=== PATIENT | male | born 1950 | race Caucasian/White ===

== ENCOUNTER 2016-06-14 15:28 | Inpatient (IN) | payer OTHER ==
--- NOTE | 2016-06-14 16:18 | CT ---
EXAM: CT abdomen pelvis without contra HISTORY: Pain, constipation COMPARISON: None TECHNIQUE: CT abdomen pelvis performed without intravenous contrast. Coronal and sagittal reformat donte images obtained FINDINGS: There is a 3 mm pulmonary nodule left lower lobe image 70. Mild subsegmental atelectasis in the lung bases. Mild emphysematous change at the lung bases. Granulomatous calcification right lung. No free air. No acute abnormalities of the bones. Degenerative change in the spine. Heart normal in size Evaluation organ parenchyma limited without contrast. Liver appears normal. Gallb ladder is moderately distended. No visible gallstones. Pancreas appears normal. Granulomas calcif ication in the spleen. Spleen otherwise appears normal. Adrenals appear normal. Granulomatous c alcification in the spleen. Spleen otherwise appears normal. Mild left pelviectasis without obstru cting etiology identified. No nephrolithiasis. Sub centimeter hypodensity right kidney, too small t o characterize. No calculi visualized in normal course of the ureters. Bladder unremarkable. Pros dang normal in size. Aorta normal in caliber with atherosclerosis of the aorta and branches. No ly mphadenopathy or ascites. Stomach appears normal. No dilated loops small bowel. Appendix not visu alized. Thereis marked fecal retention in the rectosigmoid with rectum, measuring up to 8.5 cm. IMPRESSION: 1. Marked fecal retention rectosigmoid. Correlate for fecal impaction. 2. Moderately distended gallbladder. No visible gallstones. Recommend correlation with right upper quadrant ultrasound as clinically indicated. 3. Mild left pelviectasis without obstructing etiology identified. 4. Atherosclerosis. 5. Mild emphysema. 6. 3 mm pulmonary nodule left lower lobe. CT chest follow-up recommended 12 months for reevaluatio n. Report faxed at time of dictation.
--- NOTE | 2016-06-14 17:08 | ED.PDOC ---
General ED Provider: Dr. JAY ISRAEL Chief Complaint: Constipation Stated Complaint: constipation Time Seen by Physician: 15:20 (no BM x 7 days ) Mode of Arrival: Stretcher Information Source: Patient Exam Limitations: No limitations Nursing and Triage Documentation Reviewed and Agree: Yes (on pain meds for skin graft) GI Complaint Exam - Abdominal Pain Complaint/Exam Onset: Gradual Duration: 7 days Symptoms Are: Still present Timing: Constant Initial Severity: Moderate Current Severity: Moderate Location of Pain: Diffuse Character: Reports: Aching Aggravating: Reports: None Alleviating: Reports: None Associated Signs and Symptoms: Reports: Constipation. Denies: Diaphoresis, Fever, Cough, Chest pain, Dizziness, Back pain, Blood in stool, Dysuria, Urinary frequency, Decreased urine output, Decreased appetite, Discharge, Nausea , Vomiting, Diarrhea, Decreased activity Cardiac Risk Factors: Reports: DM Testicular Torsion Risk Factors: Reports: None Surgical Obstruction Risk Factors: Reports: None Abdominal Findings: Present: None Differential Diagnoses: Other (fecal impaction) Review of Systems - Review Of Systems Constitutional: Reports: No symptoms Eyes: Reports: No symptoms Ears, Nose, Mouth, Throat: Reports: No symptoms Respiratory: Reports: No symptoms Cardiac: Reports: No symptoms GI: Reports: Abdominal pain, Constipated : Reports: No symptoms Musculoskeletal: Reports: No symptoms Skin: Reports: No symptoms Neurological: Reports: No symptoms Endocrine: Reports: No symptoms Hematologic/Lymphatic: Reports: No symptoms All Other Systems: Reviewed and Negative Past Medical History - Past Medical History Previously Healthy: No Endocrine: Reports: DM 2 Cardiovascular: Reports: None Respiratory: Reports: None Hematological: Reports: None Gastrointestinal: Reports: None Genitourinary: Reports: None Neuro/Psych: Reports: None Musculoskeletal: Reports: None Cancer: Reports: None - Surgical History General Surgical History: Reports: None - Family History Family History: Reports: None - Social History Smoking Status: Current every day smoker, Heavy tobacco smoker Hx Substance Use: No Alcohol Screening: None Physical Exam - Physical Exam Appearance: Well-appearing, No pain distress, Well-nourished Eyes: LUPE, EOMI, Conjunctiva clear ENT: Ears normal, Nose normal, Oropharynx normal Respiratory: Airway patent, Breath sounds clear, Breath sounds equal, Respirations nonlabored Cardiovascular: RRR, Pulses normal, No rub, No murmur GI/: Soft, Nontender, No masses, Bowel sounds normal, No Organomegaly Musculoskeletal: Normal strength, ROM intact, No edema, No calf tenderness Skin: Warm, Dry, Normal color Neurological: Sensation intact, Motor intact, Reflexes intact, Cranial nerves intact, Alert, Oriented Psychiatric: Affect appropriate, Mood appropriate Interpretation - Radiology Interpretation Radiology Interpretation By: Radiologist Critical Care Note - Critical Care Note Total Time (mins): 0 Course - Course Orders, Labs, Meds: Orders Category Date Time Status CT ABDOMEN/PELVIS WO CONTRAST Stat RADS 06/14/16 15:30 Completed Vital Signs: Temp Pulse Resp BP Pulse Ox 06/14/16 15:18 99.1 F 91 H 20 161/93 H 96 Departure - Departure Time of Disposition: 17:08 Disposition: ADMITTED INPATIENT Discharge Problem: Constipation Instructions: Constipation (ED), High Fiber Diet (ED) Condition: Good Pt referred to PMD for follow-up: No Additional Instructions: Please call your Family Physician as soon as possible to schedule a follow-up appointment. Allergies/Adverse Reactions: Allergies No Known Allergies Allergy (Verified 03/24/15 15:56) Home Medications: Ambulatory Orders Metformin HCl [Fortamet] 500 mg PO PRN PRN 03/24/15 Aspirin/Calcium Carbonate/Mag [Aspirin Buffered 325 mg Tab] 325 mg PO DAILY 02/18 Lisinopril [Zestril] 20 mg PO DAILY 06/14/16 Oxycodone-Acetaminophen 5-325 [Percocet 5-325] 1 - 2 tab PO Q6HR PRN 06/14/16 Pregabalin [Lyrica] 100 mg PO TID 06/14/16
[2016-06-14] MEDS ORDERED: NON-FORMULARY MEDICATION (Metformin Hcl [Fortamet] 500 MG) PO PRN (17:12)
[2016-06-14 17:29] LABS: BASOPHILS % (AUTO) 0.1 % (0.0-3.0); EOSINOPHILS % (AUTO) 0.1 % (0.0-7.0); HEMATOCRIT 34.3 % (42.0-52.0); HEMOGLOBIN 11.7 g/dl (14.0-18.0); IMMATURE GRANULOCYTE % (AUTO) 0.3 % (0.0-5.0); LYMPHOCYTES # (AUTO) 1.8 K/uL (0.60-3.4); LYMPHOCYTES % (AUTO) 12.5 (10.0-50.0); MEAN CORPUSCULAR HEMOGLOBIN 29.6 pg (27.0-31.0); MEAN CORPUSCULAR HGB CONC 34.1 (31.8-35.4); MEAN CORPUSCULAR VOLUME 86.8 fl (80.0-94.0); MONOCYTES # (AUTO) 0.9 K/uL (0.4-2.0); MONOCYTES % (AUTO) 6.1 (0-10); NEUTROPHILS # (AUTO) 11.7 K/ul (2.0-6.9); NEUTROPHILS % (AUTO) 80.9; PLATELET COUNT 423 10^3/uL (140-440); RED BLOOD COUNT 3.95 10^6/ul (4.70-6.10); WHITE BLOOD COUNT 14.53 K/ul (4.2-10.2)
[2016-06-14 17:53] LABS: ALBUMIN/GLOBULIN RATIO 0.95; ANION GAP 17.1; BILIRUBIN,TOTAL 0.46 mg/dL (0.00-1.20); BUN/CREATININE RATIO 10.44; CALCIUM 9.8 mg/dL (8.2-10.2); CREATININE 0.67 mg/dL (0.60-1.10); POTASSIUM 4.1 mmol/L (3.5-5.1); TOTAL PROTEIN 8.2 g/dL (5.8-8.1)
[2016-06-14 18:34] VITALS: BMI 15.9
[2016-06-14] MEDS: LYRICA PO SCH (20:47)
[2016-06-14] MEDS: PERCOCET 5-325 PO PRN (20:47)
[2016-06-15] MEDS: SODIUM CHLORIDE 1,000 ML IV SCH ×2 (03:07→20:45)
[2016-06-15] MEDS ORDERED: PERCOCET 10-325 ONE (03:26)
[2016-06-15] MEDS: PERCOCET 5-325 PO PRN ×5 (03:34→20:43)
[2016-06-15 08:23] LABS: BASOPHILS % (AUTO) 0.4 % (0.0-3.0); EOSINOPHILS # (AUTO) 0.1 K/ul (0.0-0.7); EOSINOPHILS % (AUTO) 0.7 % (0.0-7.0); HEMATOCRIT 30.9 % (42.0-52.0); HEMOGLOBIN 10.5 g/dl (14.0-18.0); IMMATURE GRANULOCYTE % (AUTO) 0.4 % (0.0-5.0); LYMPHOCYTES # (AUTO) 2.5 K/uL (0.60-3.4); LYMPHOCYTES % (AUTO) 30.2 (10.0-50.0); MEAN CORPUSCULAR HEMOGLOBIN 30.2 pg (27.0-31.0); MEAN CORPUSCULAR VOLUME 88.8 fl (80.0-94.0); MONOCYTES # (AUTO) 0.9 K/uL (0.4-2.0); MONOCYTES % (AUTO) 10.1 (0-10); NEUTROPHILS # (AUTO) 4.9 K/ul (2.0-6.9); NEUTROPHILS % (AUTO) 58.2; PLATELET COUNT 338 10^3/uL (140-440); RED BLOOD COUNT 3.48 10^6/ul (4.70-6.10); WHITE BLOOD COUNT 8.39 K/ul (4.2-10.2)
[2016-06-15] MEDS ORDERED: GLUCOPHAGE PO PRN (08:37)
[2016-06-15 08:47] LABS: BUN/CREATININE RATIO 14.7; CALCIUM 9.2 mg/dL (8.2-10.2); CREATININE 0.68 mg/dL (0.60-1.10)
[2016-06-15] MEDS: LYRICA PO SCH ×3 (08:48→20:43)
[2016-06-15] MEDS: ZESTRIL PO SCH (08:48)
[2016-06-15] MEDS ORDERED: NON-FORMULARY MEDICATION (Lisinopril [Zestril] 20 MG) PO SCH ×22 (09:00)
[2016-06-15] MEDS ORDERED: ARTIFICIAL TEARS OPTH SOL OP PRN (10:36)
[2016-06-15] MEDS ORDERED: TORADOL IVP STA (17:11)
[2016-06-16] MEDS: PERCOCET 5-325 PO PRN ×2 (06:45→14:55)
[2016-06-16 07:50] LABS: BASOPHILS # (AUTO) 0.1 K/uL (0-0.2); BASOPHILS % (AUTO) 0.5 % (0.0-3.0); EOSINOPHILS # (AUTO) 0.3 K/ul (0.0-0.7); EOSINOPHILS % (AUTO) 2.5 % (0.0-7.0); HEMATOCRIT 28.3 % (42.0-52.0); HEMOGLOBIN 9.6 g/dl (14.0-18.0); IMMATURE GRANULOCYTE % (AUTO) 0.4 % (0.0-5.0); LYMPHOCYTES # (AUTO) 2.3 K/uL (0.60-3.4); MEAN CORPUSCULAR HEMOGLOBIN 29.8 pg (27.0-31.0); MEAN CORPUSCULAR HGB CONC 33.9 (31.8-35.4); MEAN CORPUSCULAR VOLUME 87.9 fl (80.0-94.0); MONOCYTES # (AUTO) 0.9 K/uL (0.4-2.0); MONOCYTES % (AUTO) 8.2 (0-10); NEUTROPHILS # (AUTO) 7.1 K/ul (2.0-6.9); NEUTROPHILS % (AUTO) 66.4; PLATELET COUNT 339 10^3/uL (140-440); RED BLOOD COUNT 3.22 10^6/ul (4.70-6.10); WHITE BLOOD COUNT 10.63 K/ul (4.2-10.2)
[2016-06-16 08:26] LABS: ANION GAP 10.3; BUN/CREATININE RATIO 16.92; CALCIUM 8.8 mg/dL (8.2-10.2); CREATININE 0.65 mg/dL (0.60-1.10); POTASSIUM 4.3 mmol/L (3.5-5.1)
[2016-06-16] MEDS: ZESTRIL PO SCH (09:09)
[2016-06-16] MEDS: LYRICA PO SCH ×2 (09:09→15:58)
--- NOTE | 2016-06-16 13:14 | DI ---
Examination: Single radiographic image of the abdomen. Comparison: CT scan performed 06/14/2016. Reason for study: Constipation. FINDINGS: There is a juzjlozy-bo-hmqes amount of stool seen throughout the abdomen. Air is seen to the level of the rectosigmoid with stool within the rectum. Bowel gas pattern is nonobstructive an d nonspecific. Impression: A nonobstructive, nonspecific bowel gas pattern with a moderate to large stool burden.
[2016-06-16] MEDS ORDERED: CITRATE OF MAGNESIA PO STA (13:24)
[2016-06-16] MEDS ORDERED: CITRATE OF MAGNESIA ONE (13:46)
[2016-06-16 15:15] VITALS: BP 150/81; TEMP 97.2
--- NOTE | 2016-06-17 15:19 | PN ---
DATE OF SERVICE: 06/15/16 SUBJECTIVE: The patient had almost 6-7 very large bowel movements. REVIEW OF SYSTEMS: CONSTITUTIONAL: No fever, no chills. Feeling weak and tired. HEENT: Normal. ENDOCRINE: No weight gain, no weight loss. CVS: No angina symptoms. No CHF symptoms. No palpitations. No atypical chest pain for CAD. No shortness of breath. No PND, no orthopnea. RESPIRATORY: No cough, no hemoptysis. GI: No nausea, no vomiting. Abdominal pain. : No hematuria. No polyuria. MUSCULOSKELETAL:. No joint swelling. PSYCHIATRIC: Not anxious. No depression. No suicidal thoughts. No homicidal thoughts. SKIN: Intact. No rash. PHYSICAL EXAMINATION: V/S: Blood pressure 104/67, respiratory 16, heart rate 68 and temperature 98.5. HEENT: Normocephalic, atraumatic. Ears, eyes, nose and throat normal. Mucosa dry. Pallor positive. No icterus. NECK: Supple. No JVD, no carotid bruit. No lymphadenopathy. LUNGS: Decreased and clear to auscultation. No rales or rhonchi. HEART: S1, S2 normal. No S3. No murmur, gallop or regurgitation. ABDOMEN: Soft, nontender. Bowel sounds active. No rigidity. No rebound or guarding. No CVA tenderness. EXTREMITIES: No clubbing, cyanosis or pedal edema. Right elbow amputation. MUSCULOSKELETAL: No joint swelling. NEUROLOGIC: Awake, alert, oriented times three. No focal deficit. LYMPHATIC: No lymph nodes palpable. SKIN: Intact. LABS: WBC 8.39, hgb 10.5, hct 30.9, plt count 338, sodium 133, potassium 4.0, chloride 99, bicarb 25, BUN 10 and creatinine 0.68. ASSESSMENT: 1. Fecal impaction with severe constipation which is resolved 2. Dehydration 3. Diabetes 4. Hypertension 5. Dyslipidemia 6. Left facial melanoma, status post radiation and graft surgery PLAN: 1. Continue the medication Metformin 2. Oxycodone 3. Pregabalin 4. Out of bed to chair 5. Continue IV fluids Will follow the patient in daily rounds. TIME SPENT: More than 30 minutes MTDD
--- NOTE | 2016-06-20 09:58 | HP ---
DATE OF SERVICE: 06/14/16 CHIEF COMPLAINT: Constipation. HISTORY OF PRESENT ILLNESS: This is a 65-year-old male with recent history of melanoma diagnosed on the left side of face for which the patient had radiation and status post transplant surgery of the skin from forearm, which was patched to the left side of the face. After the surgery, the patient was given Hydrocodone and has been taking that. The patient has not had any bowel movement for almost one week. He started having abdominal discomfort and tightness. He did take Miralax, took a bottle of Magnesium Citrate, which did not help him. The patient had a left leg amputation due to the melanoma in the past; surgery done at [facility] in [place]. The patient was seen by Dr. Palacios. CT of the abdomen showed constipation, marked fecal retention, rectosigmoid, moderately distended gallbladder, no gallstones. At that time, the patient is admitted to the hospital for disimpaction and IV fluids. REVIEW OF SYSTEMS: CONSTITUTIONAL: Weakness. No fever, no chills. HEENT: Normal. ENDOCRINE: No weight gain; no weight loss. CVS: No chest pain. No PND, no orthopnea. No shortness of breath. RESPIRATORY: No cough, no congestion. No hemoptysis. GI: Constipation. Bloating/abdominal discomfort. No nausea, no vomiting. No melena. : No hematuria. No polyuria. MUSCULOSKELETAL: No joint swelling. PSYCHIATRIC: Not anxious. No depression. No suicidal thoughts. No homicidal thoughts. SKIN: Dry. Recent melanoma diagnosed on left side of ear, status post extensive graft surgery. Left forearm wound - red. PAST MEDICAL HISTORY: 1. Coronary artery disease 2. Hypertension 3. COPD 4. Osteoarthritis 5. Right ozrbb-jzq-idyw amputation 6. Diabetes mellitus 7. Recent left face melanoma with status post radiation and skin graft 8. Dyslipidemia. PAST SURGICAL HISTORY: 1. Right oktnp-koe-hpnj amputation 2. Skin graft 3. Back surgery PERSONAL HISTORY: Nonsmoker, nondrinker, lives with daughter. FAMILY HISTORY: Significant for diabetes and coronary artery disease. MEDICATIONS: (HOME) 1. Metformin 2. Lyrica 3. Percocet q.6hr 4. Lisinopril 5. Aspirin ALLERGIES: NKDA PHYSICAL EXAMINATION: V/S: BP 161/93, respiratory rate 20, heart rate 91, temperature 99.1. HEENT: Recent surgical site on left face, looks healthy. Mucosa dry. NECK: Supple. No JVD, no bruit. No lymphadenopathy. No thyromegaly. HEART: S1, S2 normal. No murmur. No cyanosis or clubbing. No ascites. LUNGS: Decreased entry. Clear to auscultation. No rales or rhonchi. ABDOMEN: Soft. Nontender. Distention present. Bowel sounds are sluggish. No CVA tenderness. No rigidity or guarding. EXTREMITIES: Left forearm donor site is somewhat warm to touch; no drainage. Right dldrx-hcia-qaqwskkshf. No cyanosis, clubbing or pedal edema. MUSCULOSKELETAL: Right BKA otherwise normal. NEUROLOGIC: The patient is awake, alert, oriented times three. SKIN: Intact; no open lesions. LYMPHATIC: No lymph nodes palpable. LABS: Sodium 132, potassium 4.1, chloride 95, bicarb 24, BUN 7, creatinine 0.67. White count 14.53, hemoglobin 11.7, hematocrit 34.3, platelet count 423. ASSESSMENT: 1. ACUTE FECAL IMPACTION WITH SEVERE CONSTIPATION 2. RECENT MELANOMA SURGERY ON LEFT FACE WITH GRAFT FROM FOREARM, RADIATION 3. LEFT FOREARM WOUND 3. HISTORY OF RIGHT ABOVE KNEE AMPUTATION 4. DIABETES MELLITUS 5. HYPERTENSION 6. DYSLIPIDEMIA 7. PERIPHERAL NEUROPATHY PLAN: 1. Admit the patient to the regular floor 2. Fleet's enema for impaction of stool 3. IV fluids at 75 mL/hr 4. Continue home medications 5. CBC, CMP today and daily 6. Wound culture 7. Will follow with the patient in daily rounds TIME SPENT: More than 65 minutes today for admission. GROVER
--- NOTE | 2016-06-21 13:21 | DS ---
DATE OF SERVICE: 06/16/16 FINAL DIAGNOSIS: 1. CONSTIPATION MOSTLY FROM MEDICATION SIDE EFFECT 2. RECENT MELANOMA, LEFT FACE, STATUS POST SURGERY-SKIN GRAFT FROM LEFT FOREARM 3. LEFT FOREARM WOUND IS GROWING ENTEROBACTER CLOACAE 4. HISTORY OF HYPERTENSION 5. DYSLIPIDEMIA 6. COPD 7. OSTEOARTHRITIS 8. RIGHT [id number] DISCHARGE INSTRUCTIONS: 1. Discharge the patient home. 2. Followup appointment: Please keep followup with his regular doctor and also for followup of surgery. MEDICATIONS AT DISCHARGE: 1. Oxycodone 2. Aspirin 3. Zestril 4. Metformin 5. Lyrica with history of diabetes and peripheral neuropathy NEW PRESCRIPTIONS: 1. Miralax 17 gm daily 2. For Wound Culture positive for Enterobactor Cloacae will call in antibiotic , Bactrim twice a day for 7 days. DIET INSTRUCTIONS: Cardiac and diabetic diet ACTIVITY: As much as tolerated SMOKING: Advised to quit. DISEASE SPECIFIC EDUCATION: 1. Pain medication side effects and constipation discussed. 2. Forearm wound culture and positive culture discussed. 3. Risk of wound infection discussed. 4. Counseling for smoking done. HOSPITAL COURSE: This is a 65-year-old male, who came to the emergency room complaining of abdominal pain, nausea feeling ever since he was started on pain medication after recent surgery on the face. The patient did not have any bowel movements for one week for which the patient came to the emergency room. He was seen by Dr. Platt in the emergency room. CT scan of the abdomen showed extensive stool with stool impaction, elevated white count to 14,000. On the left forearm there was a small wound, which is not really septic looking but was somewhat warm to touch. Wound culture was obtained. The patient was given a Fleet's enema, IV fluids. With the given treatment, the patient had good bowel movement for 2 to 3 days. Repeat KUB still showed a lot of stool. After that, the patient had 3 bowel movements. The patient was up and about and walking. He didn't have any complications. At that time, the patient was discharged. Wound culture did grow Enterobacter Cloacae. At that time, Bactriluis DS was called in the next day and advised to take Miralax every day until he has regular bowel movements. TIME SPENT: More than 35 minutes today. GROVER
== END 2016-06-16 16:45 | disposition home or self-care (01) | DRG 392 ==
LOC: ED 15:28 → MEDSURG B 17:49
PROVIDERS: ADMIT Emergency Medicine; ATTEND Emergency Medicine
DX: K59.03 Drug induced constipation (principal); C43.30 Malignant melanoma of unspecified part of face; S50.912A Unspecified superficial injury of left forearm, initial encounter; B96.89 Other specified bacterial agents as the cause of diseases classified elsewhere; E11.9 Type 2 diabetes mellitus without complications; I10 Essential (primary) hypertension; J44.9 Chronic obstructive pulmonary disease, unspecified; E78.5 Hyperlipidemia, unspecified; E86.0 Dehydration; F17.210 Nicotine dependence, cigarettes, uncomplicated; M19.90 Unspecified osteoarthritis, unspecified site; Z79.899 Other long term (current) drug therapy; Z79.84 Long term (current) use of oral hypoglycemic drugs; Z85.820 Personal history of malignant melanoma of skin; Z89.611 Acquired absence of right leg above knee; Z16.39 Resistance to other specified antimicrobial drug; K59.00 Constipation, unspecified
CPT/HCPCS: 36415; 80048; 80053; 82962; 85025; 87070; 87081; 87186; 99223; 99233; 99239; 99284

== ENCOUNTER 2018-09-25 23:14 | Emergency (ER) ==
[2018-09-25 23:22] VITALS: BMI 17.5
--- NOTE | 2018-09-26 01:15 | CT ---
EXAM: CT head without contrast. HISTORY: Headache. PROCEDURE: Contiguous axial CT images of the head without contrast with coronal and sagittal reforma ts. FINDINGS: Comparison made with CT head of 09/30/2015. There is diffuse cerebral atrophy. The ventri cles and basal cisterns are normal in size and configuration. No evidence of mass or midline shift. No intracranial hemorrhage or evidence of large vessel infarct. No extra-axial fluid collection. T here are chronic small vessel ischemic changes in the white matter. There is minimal mucosal thicken ing in the paranasal sinuses. The mastoid air cells are normal in appearance. Impression: No intracranial hemorrhage or evidence of large vessel infarct. Chronic small vessel ischemic changes. Diffuse cerebral atrophy. Paranasal sinusitis.
--- NOTE | 2018-09-26 01:18 | CT ---
EXAM: CT scan abdomen pelvis without contrast HISTORY: Nausea COMPARISON: CT scan abdomen pelvis 06/14/2016 FINDINGS: Contiguous axial images obtained through the abdomen bowel without contrast utilizing 3-mm collimation. Sagittal and coronal reconstructions were imaged and reviewed. There is mild bibasila r dependent atelectasis. The gallbladder is fluid filled without lithiasis. The stomach mildly dist ended with food debris. The liver, pancreas, spleen and adrenal glands have normal unenhanced CT yu earance. Renovascular calcification is noted bilaterally. Atherosclerotic changes are seen involvin g the aorta without aneurysm formation.. Prostate gland is normal in size. The bladder is unremarka ble. There is no free fluid or inflammatory change.. Bone windows reveals no evidence of lytic or b lastic lesions. IMPRESSION: No acute intra-abdominal findings.
--- NOTE | 2018-09-26 01:37 | DI ---
EXAM: AP single view of the chest. HISTORY: Cough. FINDINGS: There are multiple old bilateral rib fractures. The cardiac silhouette and pulmonary vascu lature are within normal limits. The costophrenic angles are clear. There are calcified granulomas. No infiltrate or consolidation. There is an azygos fissure. Impression: No acute cardiopulmonary disease.
[2018-09-26] MEDS ORDERED: SODIUM CHLORIDE 1,000 ML IV STA (01:47)
--- NOTE | 2018-09-26 01:50 | ED.PDOC ---
General ED Provider: Dr. MARI ADEN-ER Chief Complaint: Weakness Stated Complaint: im weak all over Time Seen by Physician: 23:20 Mode of Arrival: Ambulance Information Source: Patient, Family Exam Limitations: No limitations Nursing and Triage Documentation Reviewed and Agree: Yes Does patient meet sepsis criteria?: No System Inflammatory Response Syndrome: Not Applicable Sepsis Protocol: For patient's 13 years and over: Temp is 96.8 and below OR 101 and greater Pulse >90 BPM Resp >20/minute Acutely Altered Mental Status Are patient's symptoms suggestive of a new infection, such as: -Pneumonia -Skin, Soft Tissue -Endocarditis -UTI -Bone, Joint Infection -Implantable Device -Acute Abdominal Infection -Wound Infection -Meningitis -Blood Stream Catheter Infection -Unknown Musculoskeletal Complaint Exam - Lower Extremity Complaint/Exam Location of Pain: Reports: Leg Mechanism of Injury: Reports: No known trauma Symptoms Are: Still present Onset of Pain: Reports: Immediate Initial Severity: Mild Current Severity: Mild Location: Reports: Discrete Character: Reports: Dull Alleviating: Reports: None Aggravating: Reports: Movement, Weight bearing Able to Bear Weight: No Associated Signs and Symptoms: Reports: Weakness DVT Risk Factors: Reports: None Septic Arthritis Risk Factors: Reports: None Related Surgical History: Reports: None NV Bundle Intact Distal to Injury: Yes Jeaneth's Sign Present: No Differential Diagnoses: Other Review of Systems - Review Of Systems Constitutional: Reports: No symptoms Eyes: Reports: No symptoms Ears, Nose, Mouth, Throat: Reports: No symptoms Respiratory: Reports: No symptoms Cardiac: Reports: No symptoms GI: Reports: No symptoms : Reports: No symptoms Musculoskeletal: Reports: No symptoms Skin: Reports: No symptoms Neurological: Reports: No symptoms Endocrine: Reports: No symptoms Hematologic/Lymphatic: Reports: No symptoms All Other Systems: Reviewed and Negative Past Medical History - Past Medical History Previously Healthy: No Endocrine: Reports: DM 2 Cardiovascular: Reports: None Respiratory: Reports: None Hematological: Reports: None Gastrointestinal: Reports: None Genitourinary: Reports: None Neuro/Psych: Reports: None Musculoskeletal: Reports: None Cancer: Reports: None - Surgical History General Surgical History: Reports: None - Family History Family History: Reports: None - Social History Smoking Status: Current every day smoker, Heavy tobacco smoker Hx Substance Use: No Alcohol Screening: None - Immunizations Tetanus Shot up to Date: Yes Physical Exam - Physical Exam Appearance: Well-appearing, No pain distress, Well-nourished Eyes: LUPE, EOMI, Conjunctiva clear ENT: Ears normal, Nose normal, Oropharynx normal Neck: Supple Respiratory: Airway patent, Breath sounds clear, Breath sounds equal, Respirations nonlabored Cardiovascular: RRR, Pulses normal, No rub, No murmur GI/: Soft, Nontender, No masses, Bowel sounds normal, No Organomegaly Musculoskeletal: Normal strength, ROM intact, No edema, No calf tenderness Skin: Warm, Dry, Normal color Neurological: Sensation intact, Motor intact, Reflexes intact, Cranial nerves intact, Alert, Oriented Psychiatric: Affect appropriate Interpretation - Radiology Interpretation Radiology Interpretation By: Radiologist Radiology Results: Negative Exam Interpreted: CT Scan - EKG Interpretation Time of EKG #1: 01:49 Rate: Normal Rhythm: Sinus Ectopy: None Cutler: NL ST Segment: Normal Interpretation: nsr Critical Care Note - Critical Care Note Total Time (mins): 30 Course - Course Hematology/Chemistry: 09/25/18 23:59 09/25/18 23:59 Orders, Labs, Meds: Lab Review 09/25/18 09/25/18 09/25/18 23:43 23:53 23:59 WBC 9.14 RBC 4.32 L Hgb 13.2 L Hct 36.1 L MCV 83.6 MCH 30.6 MCHC 36.6 H RDW Coeff of Gina 11.8 Plt Count 273 Immature Gran % (Auto) 0.2 Neut % (Auto) 78.3 Lymph % (Auto) 13.6 Lanier % (Auto) 7.3 Eos % (Auto) 0.3 Baso % (Auto) 0.3 Immature Gran # (Auto) 0.0 Neut # (Auto) 7.2 H Lymph # (Auto) 1.2 Lanier # (Auto) 0.7 Eos # (Auto) 0.0 Baso # (Auto) 0.0 ESR 19 H Puncture Site Rbrach O2 Saturation 96.0 ABG pH 7.434 ABG pCO2 31.0 L ABG pO2 82.0 L ABG HCO3 20.8 L ABG Total CO2 22 ABG Base Excess -3 L Jaswant Test + FiO2 % 21.0 Sodium Potassium Chloride Carbon Dioxide Anion Gap BUN Creatinine Estimated GFR (MDRD) BUN/Creatinine Ratio Glucose Calcium Total Bilirubin AST ALT Alkaline Phosphatase Total Creatine Kinase Troponin I Total Protein Albumin Globulin Albumin/Globulin Ratio Urine Color Yellow Urine Clarity Clear Urine pH 7.5 Ur Specific Limon 1.020 Urine Protein 3+ Urine Glucose (UA) Negative Urine Ketones Trace Urine Blood Negative Urine Nitrite Negative Urine Bilirubin Negative Urine Urobilinogen 0.2 Ur Leukocyte Esterase Negative Urine Microscopic RBC 0-2 Urine Microscopic WBC 2-5 Ur Squamous Epith Cells 2-5 Amorphous Sediment Trace Urine Bacteria Trace Urine Mucus 1+ 09/25/18 09/25/18 23:59 23:59 WBC RBC Hgb Hct MCV MCH MCHC RDW Coeff of Gina Plt Count Immature Gran % (Auto) Neut % (Auto) Lymph % (Auto) Lanier % (Auto) Eos % (Auto) Baso % (Auto) Immature Gran # (Auto) Neut # (Auto) Lymph # (Auto) Lanier # (Auto) Eos # (Auto) Baso # (Auto) ESR Puncture Site O2 Saturation ABG pH ABG pCO2 ABG pO2 ABG HCO3 ABG Total CO2 ABG Base Excess Jaswant Test FiO2 % Sodium 123.0 L Potassium 3.88 Chloride 88.6 L Carbon Dioxide 21.0 L Anion Gap 17.28 BUN 6.3 L Creatinine 0.40 L Estimated GFR (MDRD) 215.00 BUN/Creatinine Ratio 15.75 Glucose 130.6 H Calcium 9.42 Total Bilirubin 0.67 AST 27.9 ALT 23.4 Alkaline Phosphatase 65.3 Total Creatine Kinase 88.1 Troponin I 0.031 Total Protein 8.03 Albumin 5.09 H Globulin 2.94 Albumin/Globulin Ratio 1.73 Urine Color Urine Clarity Urine pH Ur Specific Limon Urine Protein Urine Glucose (UA) Urine Ketones Urine Blood Urine Nitrite Urine Bilirubin Urine Urobilinogen Ur Leukocyte Esterase Urine Microscopic RBC Urine Microscopic WBC Ur Squamous Epith Cells Amorphous Sediment Urine Bacteria Urine Mucus Orders Category Date Time Status ABG DRAW REQUEST Stat CARDIO 09/25/18 23:43 Completed EKG-(ED ONLY) Stat CARDIO 09/25/18 23:43 Completed TRANSFER TO OUTSIDE FACILITY .TO [facility] 09/26/18 01:50 Ordered (LIVAN SIMPSON) WRITE TRANSFER/SBAR NOTE ONCE CARE 09/26/18 01:51 Ordered DISCHARGE ASSESSMENT ONCE DISCHARGE 09/26/18 01:51 Ordered WRITE DISCHARGE NOTE ONCE DISCHARGE 09/26/18 01:51 Ordered ED IV/MEDIPORT/POWERPORT .ONCE EMERGENCY 09/26/18 01:47 Active ABG Stat LAB 09/25/18 23:43 Completed CBC W/ AUTO DIFF Stat LAB 09/25/18 23:59 Completed COMPREHENSIVE METABOLIC PANEL Stat LAB 09/25/18 23:59 Completed CREATINE KINASE Stat LAB 09/25/18 23:59 Completed ESR Stat LAB 09/25/18 23:59 Completed TROPONIN I Stat LAB 09/25/18 23:59 Completed URINALYSIS C & S IF INDICATED Stat LAB 09/25/18 23:53 Completed 0.9 % Sodium Chloride [Saline Flush] MEDS 09/26/18 01:47 Ordered 1 syr IVF PRN PRN Sodium Chloride 0.9% [Sodium Chloride] 1,000 ml MEDS 09/26/18 01:47 Active IV 75 mls/hr CT ABDOMEN/PELVIS WO CONTRAST Stat RADS 09/25/18 23:[address] HEAD W/O CONTRAST Stat RADS 09/25/18 23:48 Completed CXR [CHEST, 1V AP ONLY] Stat RADS 09/25/18 23:49 Completed Medications Generic Name Dose Route Start Last Admin Trade Name Freq PRN Reason Stop Dose Admin Sodium Chloride 1,000 mls @ 75 mls/hr 09/26/18 01:47 Sodium Chloride IV 09/26/18 15:06 .[id number] STA Sodium Chloride 1 syr 09/26/18 01:47 Saline Flush IVF PRN PRN To flush IV Vital Signs: Temp Pulse Resp BP Pulse Ox 09/25/18 23:15 97.8 F 68 18 182/85 H 95 Departure - Departure Time of Disposition: 01:50 Disposition: TSF SHORT-TRM HOSP Discharge Problem: Muscle weakness, Hyponatremia Instructions: Hyponatremia (ED) Condition: Fair Pt referred to PMD for follow-up: No IPMP verified?: No Allergies/Adverse Reactions: Allergies No Known Allergies Allergy (Verified 09/25/18 23:22) Home Medications: Ambulatory Orders Metformin HCl [Fortamet] 500 mg PO PRN PRN 03/24/15 Lisinopril [Zestril] 20 mg PO DAILY 06/14/16 Pregabalin [Lyrica] 100 mg PO TID 06/14/16 Metoprolol Succinate [Toprol Xl] 25 mg PO BID 09/25/18 Transfer Form Completed: Yes Disposition Discussed With: Patient, Family
[2018-09-26] MEDS ORDERED: TYLENOL PO STA (02:14)
[2018-09-26 02:20] VITALS: BP 164/90; TEMP 97.7
== END 2018-09-26 02:41 | disposition short-term general hospital (02) ==
LOC: ED 23:14
DX: M62.81 Muscle weakness (generalized) (principal); E87.1 Hypo-osmolality and hyponatremia; E11.9 Type 2 diabetes mellitus without complications; F17.210 Nicotine dependence, cigarettes, uncomplicated; Z79.899 Other long term (current) drug therapy
CPT/HCPCS: 36415; 80053; 81001; 82550; 82803; 84484; 85025; 85651; 93005; 93010; 96360; 99285

== ENCOUNTER 2018-09-26 02:40 | Outpatient (CLI) ==
[2018-09-25 23:22] VITALS: BMI 17.5
== END 2018-09-26 03:03 | disposition short-term general hospital (02) ==
LOC: AMBL 02:40
PROVIDERS: ATTEND Family Medicine
DX: R53.1 Weakness (principal); E87.0 Hyperosmolality and hypernatremia; Z89.512 Acquired absence of left leg below knee